=== PATIENT | female | born 1945 | race Caucasian/White ===

== ENCOUNTER → 2018-05-03 | Outpatient (CLI) | payer BC ==
--- NOTE | 2018-05-03 11:17 | Diagnostic Imaging Report ---
EXAM: Lumbar spine radiographs - 5 views INDICATION: Mid/low back pain x 2 months. COMPARISON: None FINDINGS: BONES: There is diffuse osteopenia. There is minimal retrolisthesis of L3 on L4. No acute displaced fractures. Vertebral body heights are preserved. DISCS AND JOINTS: Mild degenerative disc and facet degenerative changes, most pronounced at L5-S1. SOFT TISSUES: Atherosclerotic calcifications are noted. IMPRESSION: No acute radiographic abnormality. Mild degenerative disc and facet degenerative changes in lower lumbar spine. Diffuse osteopenia. Signed by: Dr. Adair Adler MD on 05/03/2018 11:13 AM
== END ==
LOC: MAMMO 08:28
PROVIDERS: ATTEND Internal Medicine
DX: Z12.31 Encounter for screening mammogram for malignant neoplasm of breast (principal); M47.27 Other spondylosis with radiculopathy, lumbosacral region
CPT/HCPCS: 72110; 77067

== ENCOUNTER → 2018-11-15 | Outpatient (CLI) | payer BC ==
[~2018-11-15] MED LIST: AMLODIPINE BESYL5 MG PO; METOPROLOL PO
--- NOTE | 2018-11-15 10:19 | Diagnostic Imaging Report ---
EXAM: CT Abdomen without IV contrast INDICATION: Right upper quadrant pain COMPARISON: None. TECHNIQUE: The abdomen scanned utilizing a multidetector helical scanner from the lung base to the iliac crest without contrast. Coronal and sagittal reformations were obtained. Routine protocol was performed. RADIATION DOSE: Total DLP: 129 mGy*cm Dose modulation, iterative reconstruction, and/or weight based adjustment of the mA/kV was utilized to reduce the radiation dose to as low as reasonably achievable. FINDINGS: LOWER THORAX: The lung bases are clear. HEPATOBILIARY: No focal hepatic lesions. No biliary ductal dilatation. The gallbladder is not visualized SPLEEN: No splenomegaly. PANCREAS: No focal masses or ductal dilatation. ADRENALS: No adrenal nodules. KIDNEYS/URETERS: No hydronephrosis, stones, or solid mass lesions. PERITONEUM / RETROPERITONEUM: No free air or fluid. LYMPH NODES: No lymphadenopathy. VESSELS: There are moderate atherosclerotic calcifications of the abdominal aorta and iliac vessels. GI TRACT: The visualized portions of the gastrointestinal tract demonstrate no evidence of distention or wall thickening. BONES AND SOFT TISSUES: Unremarkable. IMPRESSION: No acute findings in the abdomen to explain the patient's right upper quadrant pain. Signed by: Padilla Ko MD on 11/15/2018 10:15 AM
== END ==
LOC: CT 08:18
PROVIDERS: ATTEND Internal Medicine
DX: R10.11 Right upper quadrant pain (principal)
CPT/HCPCS: 74150

== ENCOUNTER → 2018-11-19 | Day surgery (SDC) | payer BC ==
[~2018-11-19] MED LIST changes: +FENTANYL CITRATE/PF 100MCG/2 ML INJ ONE; +PROPOFOL IV EMULSION 10 MG/ML 50 ML VIAL ONE
--- OUTSIDE RECORDS SUMMARY | 2018-11-19 10:54 | XMS REPORT ---
Author Author [facility] Address Unknown Phone Unavailable Care Team Providers Care Assistant Professor Of Radiology Name Role Phone Lakshmi BROCK Unavailable Unavailable Problems This patient has no known problems. Allergies, Adverse Reactions, Alerts This patient has no known allergies or adverse reactions. Medications This patient has no known medications. Results Test Description Test Time Test Comments Text Results Atomic Results Result Comments CT ABDOMEN WO 2018-11-15 10:10:00 [facility] [address] [id number] Patient Name: ANCA ANGELA MR #: [id number] : 1945 Age/Sex: 73/F Req #: [id number] [facility] Physician: Ordered by: JEANNIE BROCK MD Report #: [id number] Location: CT Room/Bed: Procedure: [id number] CT/CT ABDOMEN WO Exam Date: 11/15/18 Exam Time: 0859 REPORT STATUS: Signed EXAM: CT Abdomen without IV contrast INDICATION: Right upper quadrant pain COMPARISON: None. TECHNIQUE: The abdomen scanned utilizing a multidetector helical scanner from the lung base to the iliac crest without contrast. Coronal and sagittal reformations were obtained. Routine protocol was performed. RADIATION DOSE: Total DLP: 129 mGy*cm Dose modulation, iterative reconstruction, and/or weight based adjustment of the mA/kV was utilized to reduce the radiation dose to as low as reasonably achievable. FINDINGS: LOWER THORAX: The lung bases are clear. HEPATOBILIARY: No focal hepatic lesions. No biliary ductal dilatation. The gallbladder is not visualized SPLEEN: No splenomegaly. PANCREAS: No focal masses or ductal dilatation. ADRENALS: No adrenal nodules. KIDNEYS/URETERS: No hydronephrosis, stones, or solid mass lesions. PERITONEUM / RETROPERITONEUM: No free air or fluid. LYMPH NODES: No lymphadenopathy. VESSELS: There are moderate atherosclerotic calcifications of the abdominal aorta and iliac vessels. GI TRACT: The visualized portions of the gastrointestinal tract demonstrate no evidence of distention or wall thickening. BONES AND SOFT TISSUES: Unremarkable. IMPRESSION: No acute findings in the abdomen to explain the patient's right upper quadrant pain. Signed by: Padilla Barreto MD on 11/15/2018 10:15 AM Dictated By: PADILLA BARRETO MD 1015 Transcribed By: DANNY on 11/15/18 1015 COPY TO: JEANNIE BROCK MD SP LUMBAR, COMPLETE MIN 4VW 2018-05-03 11:09:00 [address] [address] Patient Name: ANCA ANGELA MR #: [id number] : 1945 Age/Sex: 72/F Req #: [id number] Adm Physician: Ordered by: JEANNIE BROCK MD Report #: [id number] Location: [facility] Room/Bed: Procedure: [id number] DX/SP LUMBAR, COMPLETE MIN 4VW Exam Date: 05/03/18 Exam Time: 0915 REPORT STATUS: Signed EXAM: Lumbar spine radiographs - 5 views INDIC ATION: Mid/low back pain x 2 months. COMPARISON: None FINDINGS: BONES: There is diffuse osteopenia. There is minimal retrolisthesis of L3 on L4. No acute displaced fractures. Vertebral body heights are preserved. DISCS AND JOINTS: Mild degenerative disc and facet degenerative changes, most pronounced at L5-S1. SOFT TISSUES: Atherosclerotic calcifications are noted. IMPRESSION: No acute radiographic abnormality. Mild degenerative disc and facet degenerative changes in lower lumbar spine. Diffuse osteopenia. Signed by: Dr. Bisi Acuna MD on 05/03/2018 11:13 AM Dictated By: BISI ACUNA MD 1113 Transcribed By: DANNY on 05/03/18 1113 COPY TO: JEANNIE BROCK MD MAMMOGRAPHY DIGITAL SCR BILAT 2018-05-03 10:29:00 [place] [address] Patient Name: ANCA ANGELA MR #: [id number] : 1945 Age/Sex: 72/F Req #: [id number] Adm Physician: Ordered by: JEANNIE BROCK MD Report #: [id number] Location: MAMMO Room/Bed: Procedure: [id number] MG/MAMMOGRAPHY DIGITAL SCR BILAT Exam Date: 05/03/18 Exam Time: 0900 REPORT STATUS: Signed #[id number] - MGSCRBIL #BILATERAL DIGITAL SCREENING MAMMOGRAM WITH CAD: 05/03/2018 CLINICAL: Routine screening. Comparison is made to exam dated: 12/15/2016 mammogram - [facility]. Current study contains 8 films. The tissue of both breasts is predominantly fatty. Current study was also evaluated with a Computer Aided Detection (CAD) system. There is benign dystrophic calcification in the right breast adjacent to the implant. There also is a benign mass in the left breast that is stable. Both breast implants are stable. No significant masses, calcifications, or other findings are seen in either breast. There has been no significant interval change. IMPRESSION: BENIGN There is no mammographic evidence of malignancy. A 1 year screening mammogram is recommended. The patient will be notified by letter of the results. Patricio Sinclair Jr., D.O. cw/:05/17/2018 11:01:29 Air Conditioning Engineer: Gisel CHINCHILLA (R)(Lakshmi), [facility] letter sent: Compared to Prior B9 Mammogram BI-RADS: 2 Benign Dictated By: PATRICIO SINCLAIR DO 1101 Transcribed By: REID on 05/17/18 110 COPY TO: JEANNIE BROCK MD MAMMOGRAPHY DIGITAL SCR BILAT [place] [address] Patient Name: ANCA ANGELA MR #: [id number] : 1945 Age/Sex: 71/F Req #: [id number] Adm Physician: Ordered by: JEANNIE BROCK MD Report #: [id number] Location: MAMMO Room/Bed: Procedure: [id number] MG/MAMMOGRAPHY DIGITAL SCR BILAT Exam Date: 12/15/16 Exam Time: 0900 REPORT STATUS: Signed THIS REPORT HAS BEEN AMENDED. #[id number] - MGSCRBIL #BILATERAL DIGITAL SCREENING MAMMOGRAM WITH CAD: 12/15/2016 No prior exams were available for comparison. The patient states that she has had a prior mammogram. Current study contains 8 films. The tissue of both breasts is predominantly fatty. Current study was also evaluated with a Computer Aided Detection (CAD) system. There is an oval mass in the left breast central to the nipple in the retroareolar region. This is ill defined mass and only visualized on the implant displacement views. The implants appear intact. No other significant masses, calcifications, or other findings are seen in either breast. IMPRESSION: INCOMPLETE: NEEDS ADDITIONAL IMAGING EVALUATION The oval mass in the left breast is indeterminate. An ultrasound is recommended. If comparison studies become available then review of these may preclude the necessity for ultrasound evaluation. The patient will be contacted by the Mammography Department to schedule this appointment. Patricio Sinclair Jr., D.O. cw/:12/31/2016 14:38:42 Air Conditioning Engineer: Gisel BOCANEGRA)(Lakshmi), [facility] letter sent: Additional Imaging Needed Mammogram BI-RADS: 0 Indeterminate AMENDMENT: 01/01/2017 Patricio Sinclair Jr., D.O. Comparison to outside mammograms dated 04/14/2015 from [place] is now possible as they have become available. There is no significant interval change from the old studies. The mass in the left breast seen on current study is unchanged and therefore most likely benign. There is no evidence of malignancy. Amended BI-RADS: 2 Benign letter sent: Compared to Prior B9 Dictated By: PATRICIO SINCLAIR DO 14 38 Transcribed By: REID on 01/01/17 0516 COPY TO: JEANNIE BROCK MD
[2018-11-19 14:00] VITALS: BP 153/81
--- NOTE | 2018-11-19 16:09 | Operative Report ---
DATE OF PROCEDURE: 11/19/2018 SURGEON: Ezra Felix MD PROCEDURE: EGD with biopsies. INDICATIONS FOR EGD: Upper abdominal pain, bloating. MEDICATIONS: The patient was done under MAC, please see anesthesiologist's note. PROCEDURE IN DETAIL: With the patient in left lateral decubitus position, flexible fiberoptic Olympus gastroscope was introduced into the esophagus under direct visualization without any difficulty. There was some patchy erythema noted in distal esophagus. The scope was then advanced with ease into the stomach, traversing a small sliding hiatal hernia. Mucosa overlying the antrum and the body revealed some patchy erythema and moderate edema and biopsies were obtained and sent to stain for H. pylori. The pylorus was intubated with ease and the scope was advanced all the way to the second portion of the duodenum. Biopsies were obtained from the second portion and duodenal bulb to rule out sprue. The scope was then withdrawn back into the stomach and retroflexed mucosa overlying the fundus and cardia appeared to be within normal limits. The scope was then straightened out, it was subsequently withdrawn. The patient tolerated the procedure well. IMPRESSION: 1. Distal esophagitis. 2. Small sliding hiatal hernia. 3. Gastritis, biopsied, biopsies sent to stain for H. pylori. 4. Rule out sprue. PLAN: 1. Follow up histology. 2. Initiate Protonix 40 mg one p.o. q.a.m. a.c. Ezra Felix MD [facility] [place][id number] cc: Kristian Foster MD
== END | disposition home or self-care (01) ==
LOC: OR 10:52
PROVIDERS: ATTEND Internal Medicine Gastroenterology
DX: K29.70 Gastritis, unspecified, without bleeding (principal); K20.9 Esophagitis, unspecified; K21.9 Gastro-esophageal reflux disease without esophagitis; K44.9 Diaphragmatic hernia without obstruction or gangrene; K59.09 Other constipation; I10 Essential (primary) hypertension; Z88.6 Allergy status to analgesic agent; Z88.8 Allergy status to other drugs, medicaments and biological substances; Z01.810 Encounter for preprocedural cardiovascular examination; Z85.3 Personal history of malignant neoplasm of breast; Z86.19 Personal history of other infectious and parasitic diseases
CPT/HCPCS: 43239; 93005; J2704; J3010

== ENCOUNTER 2019-06-03 18:41 | Emergency (ER) | payer BC ==
[~2019-06-03] VITALS: Ht 162.6 cm; Wt 55.3 kg
[~2019-06-03 18:41] MED LIST changes: -FENTANYL CITRATE/PF 100MCG/2 ML INJ ONE; -PROPOFOL IV EMULSION 10 MG/ML 50 ML VIAL ONE
== END 2019-06-03 21:00 | disposition home or self-care (01) ==
LOC: ER 18:41
DX: M79.642 Pain in left hand (principal); M79.89 Other specified soft tissue disorders; I10 Essential (primary) hypertension
CPT/HCPCS: 99282

== ENCOUNTER 2019-08-22 13:52 | Outpatient (RCR) | payer BC | END 2019-08-24 | LOC: OT 13:52 | PROVIDERS: ATTEND Specialist | DX: S42.202D Unspecified fracture of upper end of left humerus, subsequent encounter for fracture with routine healing (principal); M25.512 Pain in left shoulder; M25.612 Stiffness of left shoulder, not elsewhere classified ==

== ENCOUNTER 2019-09-19 09:10 | Outpatient (RCR) | payer BC | END 2019-09-23 | LOC: OT 09:10 | PROVIDERS: ATTEND Specialist | DX: S42.202D Unspecified fracture of upper end of left humerus, subsequent encounter for fracture with routine healing (principal); M25.512 Pain in left shoulder; M25.612 Stiffness of left shoulder, not elsewhere classified ==

== ENCOUNTER → 2019-09-19 | Outpatient (CLI) | payer BC | LOC: MAMMO 07:50 | PROVIDERS: ATTEND Internal Medicine | DX: Z12.31 Encounter for screening mammogram for malignant neoplasm of breast (principal) | CPT/HCPCS: 77067 ==

== ENCOUNTER 2019-12-21 20:57 | Emergency (ER) | payer BC ==
[~2019-12-21] VITALS: Ht 162.6 cm; Wt 55.3 kg
[2019-12-21] MEDS ORDERED: ONDANSETRON HCL INJ 2MG/ML 2ML 2 MG/ML VIAL IV STA (21:27)
[2019-12-21] MEDS ORDERED: CEFTRIAXONE SOD 1 GM/NS 50 ML 50 ML IV ONE ×2 (21:30→21:33)
[2019-12-21] MEDS ORDERED: SODIUM CHLORIDE 0.9% 1000ML 1,000 ML IV SCH (21:30)
[2019-12-21] MEDS ORDERED: ACETAMINOPHEN 325 MG TAB PO ONE (21:30)
[2019-12-21] MEDS ORDERED: ACETAMINOPHEN 325 MG TAB ONE (21:32)
[2019-12-21] MEDS ORDERED: SODIUM CHLORIDE 0.9% 1000ML 1,000 ML ONE (21:33)
--- OUTSIDE RECORDS SUMMARY | 2019-12-21 21:38 | XMS REPORT | Continuity of Care Document ---
Author Author [facility] t Organization [facility] Address [address] [place] [address] Phone Unavailable Care Team Providers Care Tugboat Pilot Name Role Phone MD Lakshmi BROCK MD PCP Lakshmi BROCK Attphys Unavailable Payers Payer Name Policy Type Policy Number Effective Date Expiration Date [employer] [facility] [id number] 2014 00:00:00 [facility] Problems Condition Name Condition Details Condition Category Status Onset Date Resolution Date Last Treatment Date Treating Clinician Comments Source Problem Condition Active [facility] Allergies, Adverse Reactions, Alerts Allergy Name Allergy Type Status Severity Reaction(s) Onset Date Inacti ve Date Treating Clinician Comments Source Tramadol Allergy to substance Active itching 2019-06-03 00:00:00 [facility] Streptomycin Allergy to substance Active anaphylaxis 2018-11-19 00:00:00 [facility] Iodine Allergy to substance Active 2018-11-15 00:00:00 [facility] Codeine Allergy to substance Active 2018-11-15 00:00:00 [facility] Social History Social Habit Start Date Stop Date Quantity Comments Source Sex Assigned At 1945 00:00:00 1945 00:00:00 Female [facility] Medications Ordered Medication Name Filled Medication Name Start Date Stop Da te Current Medication? Ordering Clinician Indication Dosage Frequency Signature (SIG) Comments Components Source Amlodipine Besylate Amlodipine Besylate Yes 5 Daily [facility] Metoprolol Metoprolol Yes 25 Bedtime [facility] Vital Signs Vital Name Observation Time Observation Value Comments Source Body Temperature 2018-11-19 13:31:00 97.8 [degF] [facility] Procedures This patient has no known procedures. Encounters Start Date/Time End Date/Time Encounter Type Admission Type [facility] Care Department Encounter ID Source 2019-09-19 09:10:00 2019-09-23 23:59:00 Discharged Recurring [facility] [id number] [facility] Patients [facility] 2019-08-11 10:26:00 2019-08-24 23:59:00 Discharged Recurring [facility] [id number] [facility] Patients [facility] 2019-06-03 18:41:00 2019-06-03 21:00:00 Departed Emergency Room [facility] [id number] [facility] Patients [facility] 2018-11-19 10:52:00 2018-11-19 10:52:00 Registered Surgical Day Care [facility] [id number] [facility] 2018-11-15 08:18:00 2018-11-15 08:18:00 Registered Clinic 3 JEANNIE KASPER [facility] [id number] [facility] Results Test Description Test Time Test Comments Results Result Comments Source MAMMOGRAPHY DIGITAL SCR BILAT 2019-09-19 09:03:00 [facility] [address] [place] [address] Patient Name: ANCA ANGELA MR #: [id number] : 1945 Age/Sex: 74/F Req #: [id number] Adm Physician: Ordered by: JEANNIE BROCK MD Report #: [id number] Location: [facility] Room/Bed: Procedure: [id number] MG/MAMMOGRAPHY DIGITAL SCR BILAT Exam Date: 09/19/19 Exam Time: 821 REPORT STATUS: Signed #[id number] - MGSCRBIL #BILATERAL DIGITAL SCREENING MAMMOGRAM WITH CAD: 09/19/2019 CLINICAL: Routine screening. Comparison is made to exam dated: 05/03/2018 mammogram - [facility]. The tissue of both breasts is predominantly fatty. Current study was also evaluated with a Computer Aided Detection (CAD) system. Bilateral breast implants are stable. No significant masses, calcifications, or other findings are seen in either breast. There has been no significant interval change. IMPRESSION: NEGATIVE There is no mammographic evidence of malignancy. A 1 year screening mammogram is recommended. The patient will be notified by letter of the results. VELMA BARRON M.D. kw/filomena:10/01/2019 09:58:23 Hospice Social Worker: Gisel CHINCHILLA(R)(M), [facility] letter sent: Compared to Prior B9 Mammogram BI-RADS: 1 Negative Dictated By: VELMA BARRON MD 7 Transcribed By: FILOMENA on 10/01/19957 COPY TO: JEANNIE BROCK MD CT ABDOMEN WO 2018-11-15 10:10:00 [place] [address] Patient Name: ANCA ANGELA MR #: [id number] : 1945 Age/Sex: 73/F Req #: [id number] Adm Physician: Ordered by: JEANNIE BROCK MD Report #: [id number] Location: CT Room/Bed: Procedure: [id number] CT/CT ABDOMEN WO Exam Date: 11/15/18 Exam Time: 858 REPORT STATUS: Signed EXAM: CT Abdomen without [...] No focal hepatic lesions. No biliary ductal dilata tion. The gallbladder is not visualized SPLEEN: No [...] SP LUMBAR, COMPLETE MIN 4VW 2018-05-03 11:09:00 [place] [address] Patient Name: ANCA ANGELA MR #: [id number] : 1945 Age/Sex: 72/F Req #: [id number] Adm Physician: Ordered by: JEANNIE BROCK MD Report #: [id number] Location: [facility] Room/Bed: Procedure: [id number] DX/SP LUMBAR, COMPLETE MIN 4VW Exam Date: 05/03/18 Exam Time: 914 REPORT STATUS: Signed EXAM: Lumbar spine radiographs - 5 views INDICATION: Mid/low back pain x 2 months. COMPARISON: [...] MD MAMMOGRAPHY DIGITAL SCR BILAT 2018-05-03 10:29:00 [place] [address] Patient Name: ANCA ANGELA MR #: [id number] : 1945 Age/Sex: 72/F Req #: [id number] Adm Physician: Ordered by: JEANNIE BROCK MD Report #: [id number] Location: [facility] Room/Bed: Procedure: [id number] MG/MAMMOGRAPHY DIGITAL SCR BILAT Exam Date: 05/03/18 Exam Time: 0900 REPORT STATUS: Signed #[id number] - MGSCRBIL #BILATERAL DIGITAL SCREENING MAMMOGRAM WITH CAD: 05/03/2018 CLINICAL: Routine screening. Comparison is made to exam dated: 12/15/2016 mammogram - [facility]. Current study contains 8 fi lms. The tissue of both breasts is predominantly [...] be notified by letter of the results. Nestor Sinclair Jr., D.O. cw/:05/17/2018 11:01:29 Hospice Social Worker: Gisel CHINCHILLA(R)(Lakshmi), [facility] letter sent: Compared to Prior B9 Mammogram BI-RADS: 2 Benign Dictated By: NESTOR SINCLAIR DO 1101 Transcribed By: FILOMENA on 05/17/18 1101 COPY TO: JEANNIE BROCK MD MAMMOGRAPHY DIGITAL SCR BILAT [place] [address] Patient Name: ANCA ANGELA MR #: [id number] : 1945 Age/Sex: 71/F Req #: [id number] Adm Physician: Ordered by: JEANNIE BROCK MD Report #: [id number] Location: MAMMO Room/Bed: Procedure: [id number] MG/MAMMOGRAPHY DIGITAL SCR BILAT Exam Date: 12/15/16 Exam Time: 0900 REPORT STATUS: Signed THIS REPORT HAS BEEN AMENDED. #[id number] - MGSCRBIL #BILATERAL DIGITAL SCREENING MAMMOGRAM WITH [...] the Mammography Department to schedule this appointment. Nestor Sinclair Jr., D.O. cw/:12/31/2016 14:38:42 Hospice Social Worker: Gisel BOCANEGRA)(Lakshmi), [facility] letter sent: Additional Imaging Needed Mammogram BI-RADS: 0 Indeterminate AMENDMENT: 01/01/2017 Nestor Sinclair Jr., D.O. Comparison to outside mammograms dated 04/14/2015 from [place] is now possible as they have become available. There is no significant interval change from the old studies. The mass in the left breast seen on current study is unchanged and therefore most likely benign. There is no evidence of malignancy. Amended BI-RADS: 2 Benign letter sent: Compared to Prior B9 Dictated By: NESTOR SINCLAIR DO 14 38 Transcribed By: FILOMENA on 01/01/17 1356 COPY TO: JEANNIE BROCK MD
--- NOTE | 2019-12-21 21:41 | Emergency Department Note ---
History of Present Illnes History of Present Illness Chief Complaint: Sepsis History of Present Illness This is a 74 year old female PRESENTS TO THE ER C/O CHILLS, BURNING WITH URINATION AND MID BACK PAIN ONSET YESTERDAY; PT ALSO REPORTS URINARY FREQUENCY; PT FEBRILE IN TRIAGE, 102.5; PT DENIES FEVER AT HOME . Historian: Patient Arrival Mode: Car Onset (how long ago): day(s) (1) Location: SUPRA PUBIC AND BILATERAL MID BACK Quality: PAIN Radiation: Reports back (BILATERAL FLANK) Severity: moderate Onset quality: gradual Duration (how long): day(s) (1) Timing of current episode: constant Progression: worsening Chronicity: new Context: Denies recent illness, Denies recent surgery, Denies trauma/injury Relieving factors: none Exacerbating factors: none Associated symptoms: Reports denies other symptoms Treatments prior to arrival: none Past Medical/Family History Physician Review I have reviewed the patient's past medical and family history. Any updates have been documented here. Past Medical History Recent Fever: Yes Clinical Suspicion of Infectio: Yes New/Unexplained Change in Ment: No Past Medical History: Hypertension, GERD Other Medical History: IRREGULAR HEART BEAT Past Surgical History: Cholecysctectomy, Hysterectomy, Mastectomy, Cataract Removal Other Surgery: Bilateral mastectomy Social History Smoking Cessation: Former smoker Alcohol Use: None Any Illegal Drug Use: No Family History Family history of heart diseas: No Other Last Tetanus: UTD Review of Systems Review of Systems Constitutional: Reports no symptoms EENTM: Reports no symptoms Cardiovascular: Reports no symptoms Respiratory: Reports no symptoms Gastrointestinal: Reports no symptoms Genitourinary: Reports as per HPI Musculoskeletal: Reports no symptoms Integumentary: Reports no symptoms Neurological: Reports no symptoms Psychological: Reports no symptoms Endocrine: Reports no symptoms Hematological/Lymphatic: Reports no symptoms Physical Exam Related Data Allergies: Coded Allergies: codeine (Verified Allergy, Unknown, 11/15/18) iodine (Verified Allergy, Unknown, 11/15/18) streptomycin (Verified Allergy, Unknown, anaphylaxis, 11/19/18) tramadol (Verified Allergy, Unknown, itching, 06/03/19) Triage Vital Signs Vital Signs Date Time Temp Pulse Resp B/P (MAP) Pulse Ox O2 Delivery O2 Flow Rate FiO2 12/21/19 21:16 102.5 93 20 119/73 100 Room Air Vital signs reviewed: Yes Physical Exam CONSTITUTIONAL Constitutional: Present well-developed, Present well-nourished HENT HENT: Present normocephalic, Present atraumatic, Present oropharynx clear/moist, Present nose normal HENT L/R: Present left ext ear normal, Present right ext ear normal EYES Eyes: Reports PERRL, Reports conjunctivae normal NECK Neck: Present ROM normal PULMONARY Pulmonary: Present effort normal, Present breath sounds normal CARDIOVASCULAR Cardiovascular: Present regular rhythm, Present heart sounds normal, Present capillary refill normal, Present normal rate GASTROINTESTINAL Abdominal: Present soft, Present bowel sounds normal, Present tender (SUPRA PUBIC); Absent left CVA tenderness, Absent right CVA tenderness GENITOURINARY Genitourinary: Present exam deferred SKIN Skin: Present warm, Present dry MUSCULOSKELETAL Musculoskeletal: Present ROM normal NEUROLOGICAL Neurological: Present alert, Present oriented x 3, Present no gross motor or sensory deficits PSYCHOLOGICAL Psychological: Present mood/affect normal, Present judgement normal Results Laboratory Laboratory Laboratory Tests Test 12/21/19 21:28 12/21/19 21:23 Urine Color Yellow (YELLOW) Urine Clarity Hazy (CLEAR) Urine pH 7 (5 - 7) Urine Specific [place] 1.020 (1.010-1.025) Urine Protein 2+ (NEGATIVE) Urine Glucose (UA) Negative (NEGATIVE) Urine Ketones Negative (NEGATIVE) Urine Blood Moderate (NEGATIVE) Urine Nitrite Negative (NEGATIVE) Urine Bilirubin Negative (NEGATIVE) Urine Urobilinogen 2.0 mg/dL (0.2 - 1) Urine Leukocyte Esterase Moderate (NEGATIVE) Urine RBC 11-20 /HPF (0-5) Urine WBC >50 /HPF (0-5) Urine Epithelial Cells Few /LPF (NONE) Urine Amorphous Sediment Few (FEW) Urine Bacteria Moderate /HPF (NONE) Urine Fine Granular Casts 1-5 (0) Urine Mucus Few (RARE) White Blood Count 15.39 x10e3/uL (4.8-10.8) Red Blood Count 4.30 x10e6/uL (3.6-5.1) Hemoglobin 12.7 g/dL (12.0-16.0) Hematocrit 39.0 % (34.2-44.1) Mean Corpuscular Volume 90.7 fL (81-99) Mean Corpuscular Hemoglobin 29.5 pg (28-32) Mean Corpuscular Hemoglobin Concent 32.6 g/dL (31-35) Red Cell Distribution Width 13.1 % (11.7-14.4) Platelet Count 215 x10e3/uL (140-360) Neutrophils (%) (Auto) 92.9 % (38.7-80.0) Lymphocytes (%) (Auto) 3.6 % (18.0-39.1) Monocytes (%) (Auto) 2.2 % (4.4-11.3) Eosinophils (%) (Auto) 0.5 % (0.0-6.0) Basophils (%) (Auto) 0.3 % (0.0-1.0) Neutrophils # (Auto) 14.3 (2.1-6.9) Lymphocytes # (Auto) 0.6 (1.0-3.2) Monocytes # (Auto) 0.3 (0.2-0.8) Eosinophils # (Auto) 0.1 (0.0-0.4) Basophils # (Auto) 0.0 (0.0-0.1) Absolute Immature Granulocyte (auto 0.07 x10e3/uL (0-0.1) Differential Total Cells Counted 100 Neutrophils % (Manual) 91 % (40-74) Band Neutrophils % 2 % Lymphocytes % (Manual) 4 % (19-48) Monocytes % (Manual) 3 % (3.4-9.0) Platelet Estimate Adequate Platelet Morphology Comment Normal Sodium Level 143 mmol/L (136-145) Potassium Level 3.6 mmol/L (3.5-5.1) Chloride Level 103 mmol/L (98-107) Carbon Dioxide Level 28 mmol/L (22-29) Anion Gap 15.6 mmol/L (8-16) Blood Urea Nitrogen 14 mg/dL (7-26) Creatinine 0.83 mg/dL (0.57-1.11) Estimat Glomerular Filtration Rate > 60 ML/MIN (60-) BUN/Creatinine Ratio 17 (6-25) Glucose Level 118 mg/dL (74-118) Lactic Acid Level 1.0 mmol/L (0.5-2.0) Calcium Level 9.4 mg/dL (8.4-10.2) Total Bilirubin 0.6 mg/dL (0.2-1.2) Aspartate Amino Transf (AST/SGOT) 21 IU/L (5-34) Alanine Aminotransferase (ALT/SGPT) 12 IU/L (0-55) Alkaline Phosphatase 103 IU/L (40-150) Total Protein 7.3 g/dL (6.5-8.1) Albumin 4.5 g/dL (3.5-5.0) Globulin 2.8 g/dL (2.3-3.5) Albumin/Globulin Ratio 1.6 (0.8-2.0) Laboratory Tests Test 12/21/19 21:23 Lab results reviewed: Yes Imaging Imaging results reviewed: Yes Impressions Procedure: [id number] CT/CT ABDOMEN/PELVIS WO Exam Date: 12/21/19 Exam Time: 2144 REPORT STATUS: Signed EXAM: CT Abdomen and Pelvis WITHOUT contrast INDICATION: ^MID BACK PAIN ^[id number] ^[id number] COMPARISON: CT dated 11/15/2018 TECHNIQUE: Abdomen and pelvis were scanned utilizing a multidetector helical scanner from the lung base to the pubic symphysis without administration of IV contrast. Absence of intravenous contrast decreases sensitivity for detection of focal lesions and vascular pathology. Coronal and sagittal reformations were obtained. Routine protocol was performed. IV CONTRAST: None ORAL CONTRAST: Water COMPLICATIONS: None RADIATION DOSE: Total DLP: 163.08 mGy*cm Estimated effective dose: (DLP x 0.015 x size factor) mSv CTDIvol has been reviewed. It is below the limits set by the Radiation Protocol Committee (RPC). FINDINGS: LINES and TUBES: None. LOWER THORAX: Unremarkable. Mild anterior right lobe atelectasis/scarring. HEPATOBILIARY: Unenhanced liver is unremarkable. No biliary ductal dilation. GALLBLADDER: Not clearly visualized. SPLEEN: No splenomegaly. PANCREAS: No focal masses or ductal dilatation. ADRENALS: No adrenal nodules KIDNEYS/URETERS: No hydronephrosis. Limited for evaluation of renal parenchyma without intravenous contrast. No stones. GI TRACT: No abnormal distention, wall thickening, or evidence of bowel obstruction. Appendix is normal. Large colonic stool burden, suggestive of constipation. PELVIC ORGANS/BLADDER: Mild bladder wall thickening and perivesical fat stranding. Numerous pelvic fullness. LYMPH NODES: No lymphadenopathy. VESSELS: There is mild atherosclerotic disease in the aorta and major arterial branches. PERITONEUM / RETROPERITONEUM: No free air or fluid. BONES: Scattered sclerotic foci, likely bone islands. SOFT TISSUES: Partially seen bilateral breast implants. IMPRESSION: 1. Limited study without intravenous contrast. 2. Mild bladder wall thickening and perivesical fat stranding, concerning for cystitis. 3. No nephrolithiasis or evidence of obstructive urolithiasis. Signed by: Dr. Federico Moise MD on 12/21/2019 10:34 PM Dictated By: FEDERICO MOISE MD 33 Transcribed By: DANNY on 12/21/192233 COPY TO: STACY CASTILLO MD~ Assessment & Plan Medical Decision Making MDM PT WITH FEVER, DYSURIA, BILATERAL FLANK PAIN CBC, CMP, LACTIC ACID, UA, BLOOD CULTURE, URINE CULTURE CT ABD/PELVIS ORDERED TO EVAL FOR SEPSIS, ELECTROLYTE ABNORMALITY, PYELONEPHRITIS, UTI, KIDNEY STONE TYLENOL 975 MG PO ORDERED 1 LITER NS IV BOLUS ORDERED ZOFRAN 4 MG IV ORDERED ROCEPHIN 1 GRAM IV ORDERED Reassessment Reassessment time: 22:46 Reassessment pt states she feels good and want to go home. pt stable for discharge Assessment & Plan Final Impression: (1) Cystitis Depart Disposition: HOME, SELF-CARE Last Vital Signs Date Time Temp Pulse Resp B/P (MAP) Pulse Ox O2 Delivery O2 Flow Rate FiO2 12/21/19 21:38 85 20 134/70 100 Room Air 12/21/19 21:16 102.5 Home Meds Reported Medications [Metoprolol] No Conflict Check, 25 MG PO HS 11/15/18 Amlodipine Besylate (AMLODIPINE BESYLATE) 5 Mg Tablet, 5 MG PO DAILY, #30 TAB 11/15/18 Medications in the ED Acetaminophen 975 mg ONCE ONCE PO Last administered on 12/21/19at 21:28; Admin Dose 975 MG; Start 12/21/19 at 21:30; Stop 12/21/19 at 21:31; Status DC Sodium Chloride 1,000 ml @ 999 mls/hr Q1H1M IV Last administered on 12/21/19at 21:35; Admin Dose 999 MLS/HR; Start 12/21/19 at 21:30; Stop 01/20/20 at 21:29 Ceftriaxone Sodium 50 ml @ 100 mls/hr ONCE ONCE IV Last administered on 12/21/19at 21:36; Admin Dose 100 MLS/HR; Start 12/21/19 at 21:30; Stop 12/21/19 at 21:59 Acetaminophen 975 mg STK-MED ONCE .ROUTE ; Start 12/21/19 at 21:32; Stop 12/21/19 at 21:27; Status DC Sodium Chloride 1,000 ml @ ud STK-MED ONCE .ROUTE ; Start 12/21/19 at 21:33; Stop 12/21/19 at 21:27; Status DC Ceftriaxone Sodium 50 ml @ ud STK-MED ONCE IV ; Start 12/21/19 at 21:33; Stop 12/21/19 at 21:27; Status DC Ondansetron HCl 4 mg NOW STAT IV ; Start 12/21/19 at 21:27; Stop 12/21/19 at 21:29; Status DC STACY CASTILLO MD Dec 21, 2019 21:41
[2019-12-21 21:43] LABS: BASOPHILS % 0.3 % (0.0-1.0); EOSINOPHILS # (AUTO) 0.1 (0.0-0.4); EOSINOPHILS % 0.5 % (0.0-6.0); HEMOGLOBIN 12.7 g/dL (12.0-16.0); LYMPHOCYTES # (AUTO) 0.6 (1.0-3.2); LYMPHOCYTES % 3.6 % (18.0-39.1); MEAN CORPUSCULAR HEMOGLOBIN 29.5 pg (28-32); MEAN CORPUSCULAR HGB CONC 32.6 g/dL (31-35); MEAN CORPUSCULAR VOLUME 90.7 fL (81-99); MONOCYTES # (AUTO) 0.3 (0.2-0.8); MONOCYTES % 2.2 % (4.4-11.3); NEUTROPHILS # (AUTO) 14.3 (2.1-6.9); NEUTROPHILS % 92.9 % (38.7-80.0); PLATELET COUNT 215 x10e3/uL (140-360); RED CELL DISTRIBUTION WIDTH 13.1 % (11.7-14.4)
[2019-12-21 22:02] LABS: BAND NEUTROPHILS % (MANUAL) 2 %; LYMPHOCYTES % (MANUAL) 4 % (19-48); MONOCYTES % (MANUAL) 3 % (3.4-9.0); NEUTROPHILS % (MANUAL) 91 % (40-74); PLATELET ESTIMATE ADEQUATE; PLATELET MORPHOLOGY COMMENT NORMAL
[2019-12-21 22:04] LABS: ALANINE AMINOTRANSFERASE 12 IU/L (0-55); ALBUMIN 4.5 g/dL (3.5-5.0); ALBUMIN/GLOBULIN RATIO 1.6 (0.8-2.0); ALKALINE PHOSPHATASE 103 IU/L (40-150); ANION GAP 15.6 mmol/L (8-16); BLOOD UREA NITROGEN 14 mg/dL (7-26); BUN/CREATININE RATIO 17 (6-25); CALCIUM 9.4 mg/dL (8.4-10.2); CARBON DIOXIDE 28 mmol/L (22-29); CHLORIDE 103 mmol/L (98-107); CREATININE, SERUM 0.83 mg/dL (0.57-1.11); EST GLOMERULAR FILTRATION RATE > 60 ML/MIN (60-); GLUCOSE 118 mg/dL (74-118); POTASSIUM 3.6 mmol/L (3.5-5.1); SODIUM 143 mmol/L (136-145)
[2019-12-21 22:15] LABS: BILIRUBIN,URINE NEGATIVE (NEGATIVE); CLARITY,URINE HAZY (CLEAR); COLOR,URINE YELLOW (YELLOW); KETONES,URINE NEGATIVE (NEGATIVE); LEUKOCYTE ESTERASE ,URINE MODERATE (NEGATIVE); NITRITE,URINE NEGATIVE (NEGATIVE); PROTEIN,URINE DIPSTICK 2+ (NEGATIVE)
[2019-12-21 22:16] LABS: BACTERIA,URINE MODERATE /HPF; WBC,URINE (MAN) >50 /HPF (0-5)
[2019-12-21 22:17] LABS: AMORPHOUS SEDIMENT,URINE FEW (FEW); EPITHELIAL CELLS,URINE FEW /LPF; MUCUS,URINE FEW (RARE)
--- NOTE | 2019-12-21 22:38 | Diagnostic Imaging Report ---
EXAM: CT Abdomen and Pelvis WITHOUT contrast INDICATION: ^MID BACK PAIN ^[id number] ^2145 COMPARISON: CT dated 11/15/2018 TECHNIQUE: Abdomen and pelvis were scanned utilizing a multidetector helical scanner from the lung base to the pubic symphysis without administration of IV contrast. Absence of intravenous contrast decreases sensitivity for detection of focal lesions and vascular pathology. Coronal and sagittal reformations were obtained. Routine protocol was performed. IV CONTRAST: None ORAL CONTRAST: Water COMPLICATIONS: None RADIATION DOSE: Total DLP: 163.08 mGy*cm Estimated effective dose: (DLP x 0.015 x size factor) mSv CTDIvol has been reviewed. It is below the limits set by the Radiation Protocol Committee (RPC). FINDINGS: LINES and TUBES: None. LOWER THORAX: Unremarkable. Mild anterior right lobe atelectasis/scarring. HEPATOBILIARY: Unenhanced liver is unremarkable. No biliary ductal dilation. GALLBLADDER: Not clearly visualized. SPLEEN: No splenomegaly. PANCREAS: No focal masses or ductal dilatation. ADRENALS: No adrenal nodules KIDNEYS/URETERS: No hydronephrosis. Limited for evaluation of renal parenchyma without intravenous contrast. No stones. GI TRACT: No abnormal distention, wall thickening, or evidence of bowel obstruction. Appendix is normal. Large colonic stool burden, suggestive of constipation. PELVIC ORGANS/BLADDER: Mild bladder wall thickening and perivesical fat stranding. Numerous pelvic fullness. LYMPH NODES: No lymphadenopathy. VESSELS: There is mild atherosclerotic disease in the aorta and major arterial branches. PERITONEUM / RETROPERITONEUM: No free air or fluid. BONES: Scattered sclerotic foci, likely bone islands. SOFT TISSUES: Partially seen bilateral breast implants. IMPRESSION: 1. Limited study without intravenous contrast. 2. Mild bladder wall thickening and perivesical fat stranding, concerning for cystitis. 3. No nephrolithiasis or evidence of obstructive urolithiasis. Signed by: Dr. Federico Moise MD on 12/21/2019 10:34 PM
[2019-12-21 22:48] VITALS: BP 122/74
== END 2019-12-21 23:04 | disposition home or self-care (01) ==
LOC: ER 21:24
DX: N30.90 Cystitis, unspecified without hematuria (principal); R30.0 Dysuria; R50.9 Fever, unspecified; M54.5 Low back pain; I10 Essential (primary) hypertension; K21.9 Gastro-esophageal reflux disease without esophagitis
CPT/HCPCS: 36415; 74176; 80053; 81001; 83605; 85025; 87040; 87086; 99284; J0696; J2405; J7030; 87186

== ENCOUNTER → 2020-06-16 | Outpatient (CLI) | payer BC, OTHER ==
[~2020-06-16] MED LIST changes: +COVID-19 VACC, MRNA(MODERNA)/PF 100 MCG/0.5 ML VIAL IM ONE
== END ==
LOC: VACCPMC 12:35
DX: Z23 Encounter for immunization (principal); Z20.822 Contact with and (suspected) exposure to COVID-19
CPT/HCPCS: 0011A; 91301

== ENCOUNTER → 2020-07-14 | Outpatient (CLI) | payer BC, OTHER | END | disposition home or self-care (01) | LOC: VACCPMC 09:00 | DX: Z23 Encounter for immunization (principal); Z20.822 Contact with and (suspected) exposure to COVID-19 | CPT/HCPCS: 91301 ==

== ENCOUNTER → 2020-10-19 | Outpatient (CLI) | payer BC ==
[~2020-10-19] MED LIST changes: -COVID-19 VACC, MRNA(MODERNA)/PF 100 MCG/0.5 ML VIAL IM ONE
== END ==
LOC: MAMMO 11:40
PROVIDERS: ATTEND Internal Medicine
DX: Z12.31 Encounter for screening mammogram for malignant neoplasm of breast (principal); M85.80 Other specified disorders of bone density and structure, unspecified site
CPT/HCPCS: 77067; 77080